=== PATIENT | female | born 1950 | race Caucasian/White ===

== ENCOUNTER → 2021-12-23 | Outpatient (CLI) | payer MEDICARE, OTHER, SELFPAY ==
--- NOTE | 2021-12-23 13:12 | RAD_ITS ---
EXAM: XR CHEST, 2 VIEWS CLINICAL INDICATION: COUGH TECHNIQUE: Frontal and lateral views of the chest. This report was created using [employer] report generation technology. COMPARISON: None. FINDINGS: LUNGS AND PLEURAL SPACES: Unremarkable. No consolidation or edema. No pneumothorax. No effusion. HEART: Unremarkable. Cardiac silhouette not enlarged. MEDIASTINUM: Central airways and mediastinal contour are unremarkable. BONES/JOINTS: Unremarkable. SOFT TISSUES: Unremarkable. RAD/Chest PA and Lateral IMPRESSION: No radiographic evidence of acute cardiopulmonary disease. Electronically Signed: Jeff Miller MD at 23:53 EDT ,
[2021-12-23 15:38] LABS: Erythrocyte Sedimentation Rate 25 mm/hr (0-30)
[2021-12-23 15:57] LABS: Rheumatoid Factor < 10.0 IU/mL (<15)
[2021-12-25 18:24] LABS: ANTINUCLEAR ANTIBODIES DIRECT Negative (Negative); Angiotensin Convert Enzyme 79 U/L (14-82)
== END | disposition home or self-care (01) ==
PROVIDERS: Referring Provider Internal Medicine Pulmonary Disease; Visit Provider Internal Medicine Pulmonary Disease
DX: R05.9 Cough, unspecified (principal); R06.00 Dyspnea, unspecified
CPT/HCPCS: 36415; 71046; 82164; 85652; 86038; 86140; 86431

== ENCOUNTER → 2022-03-28 | Outpatient (CLI) | payer MEDICARE, OTHER, SELFPAY ==
--- NOTE | 2022-03-28 16:59 | CT_ITS ---
INDICATION: DYSPNEA EXAMINATION: CT CHEST WITHOUT CONTRAST - CT Chest W/O Contrast Injection TECHNIQUE: Helically acquired images were obtained of the chest. A radiation dose optimization technique was used for this scan. IV Contrast dosage and agent: None. COMPARISON: None. FINDINGS: Motion artifact degrades anatomic detail. LUNGS, PLEURA AND LARGE AIRWAYS: No masses, consolidation, or edema. There is minimal scarring and/or atelectasis within the right lower lobe. No pleural effusion or thickening. No pneumothorax. THYROID: No thyroid lesions. HEART AND PERICARDIUM: Heart size is normal. There are no coronary artery calcifications. CORONARY ARTERIES: Coronary artery calcification VESSELS: Thoracic aorta is not dilated. MEDIASTINUM AND MICHELLE: No mediastinal or hilar adenopathy. Esophagus is unremarkable. No hiatal hernia. UPPER ABDOMEN: The limited images of the upper abdomen demonstrate a 2.6 x 2.4 cm round low attenuation focus arising from the upper pole of the right kidney. BONES: There are mild degenerative changes of the thoracic spine. CT/Chest without Contrast IMPRESSION: Minimal atelectasis and/or scarring within the right lower lobe. Indeterminate 2.6 x 2.4 cm low-attenuation focus arising from the visualized right kidney may reflect a cyst, recommend renal ultrasound for further characterization. Electronically Signed: Marysol La MD at 8:56 EST ,
== END | disposition home or self-care (01) ==
LOC: CT 16:57
PROVIDERS: Visit Provider Internal Medicine Pulmonary Disease
DX: R06.00 Dyspnea, unspecified (principal)
CPT/HCPCS: 71250